=== PATIENT | female | born 1985 | race Two or more races ===

== ENCOUNTER 2016-10-12 22:31 | Inpatient (IN) | payer OTHER ==
[~2016-10-12] VITALS: Ht 157.5 cm; Wt 67.1 kg
--- NOTE | 2016-10-12 22:39 | NUR ---
PATIENT WALKED INTO ER C/O RIB CAGE PAIN RADIATING TO RIGHT UPPER CHEST X1 MONTH BUT HAS WORSENING PAIN WITHIN LAST 30MINS... PT IS ALERT, ORIENTED X 4, NO RESP DISTRESS NOTED OR REPORTED UPON ASSESSMENT... MD AT BEDSIDE...
[2016-10-12] MEDS ORDERED: FLUO-120 PO (22:50)
[2016-10-12] MEDS ORDERED: SPIR50TA3 PO (22:50)
[2016-10-12] MEDS ORDERED: KETOROLAC TROMETHAMINE 30 MG INJ IVP ONE (23:00)
[2016-10-12] MEDS ORDERED: KETOROLAC TROMETHAMINE 30 MG INJ ONE (23:04)
[2016-10-12] MEDS ORDERED: MORPHINE SULFATE 2 MG/1 ML DISP.SYRIN IV ONE (23:15)
[2016-10-12] MEDS ORDERED: ONDANSETRON 4 MG/2 ML VIAL IV ONE (23:15)
[2016-10-12 23:16] LABS: BASOPHILS % (AUTO) 0.4 % (0.0-2.0); EOSINOPHILS # (AUTO) 0.1 K/uL (0.0-0.7); EOSINOPHILS % (AUTO) 0.5 % (0.0-7.0); HEMATOCRIT 45.6 % (37-47); HEMOGLOBIN 16.1 G/DL (12.0-16.0); LYMPHOCYTES # (AUTO) 2.1 K/UL (0.8-4.8); LYMPHOCYTES % (AUTO) 18.1 % (20.5-51.5); MEAN CORPUSCULAR HEMOGLOBIN 29.1 UUG (27.0-31.0); MEAN CORPUSCULAR HGB CONC 35 g/dL (32.0-37.0); MEAN CORPUSCULAR VOLUME 82.6 FL (81.0-99.0); MONOCYTES # (AUTO) 0.7 K/UL (0.1-1.30); MONOCYTES % (AUTO) 5.8 % (0.0-11.0); NEUTROPHILS # (AUTO) 8.8 K/UL (1.8-8.9); NEUTROPHILS % (AUTO) 75.2 % (38.5-71.5); PLATELET COUNT (AUTO) 210 K/UL (150-450); RED BLOOD CELL COUNT(AUTO) 5.53 MIL/UL (4.2-5.4); WHITE BLOOD COUNT (AUTO) 11.7 K/UL (4.0-11.2)
[2016-10-12 23:17] LABS: BILIRUBIN,DIRECT 0.1 mg/dL (0.0-0.2); BILIRUBIN,TOTAL 0.3 mg/dL (0.2-1.0); POTASSIUM 3.8 mmol/L (3.5-5.1); TOTAL PROTEIN, SERUM 8.2 g/dL (6.4-8.2)
[2016-10-12] MEDS ORDERED: ONDANSETRON 4 MG/2 ML VIAL ONE (23:24)
[2016-10-12] MEDS ORDERED: MORPHINE SULFATE 2 MG/1 ML DISP.SYRIN ONE (23:24)
[2016-10-12] MEDS ORDERED: MORPHINE SULFATE 4 MG/1 ML DISP.SYRIN IV ONE (23:45)
[2016-10-12] MEDS ORDERED: MORPHINE SULFATE 4 MG/1 ML DISP.SYRIN ONE (23:54)
--- NOTE | 2016-10-12 23:57 | NUR ---
Pt requesting more pain medication, sts no change in pain with previous medication. MD notified, pt medicated. Will monitor for effects of medication.
[2016-10-13] MEDS ORDERED: IV NORMAL SALINE 1000 ML BAG IV ONE
[2016-10-13] MEDS ORDERED: HYDROMORPHONE 1 MG/1 ML DISP.SYRIN IV ONE ×3 (01:15→05:15)
[2016-10-13] MEDS ORDERED: ONDANSETRON 4 MG/2 ML VIAL IV ONE ×2 (01:15→04:00)
[2016-10-13] MEDS ORDERED: ONDANSETRON 4 MG/2 ML VIAL ONE ×2 (01:32→04:06)
[2016-10-13] MEDS ORDERED: HYDROMORPHONE 1 MG/1 ML DISP.SYRIN ONE ×3 (01:32→05:06)
[2016-10-13] MEDS ORDERED: IV NORMAL SALINE 250 ML IV ONE (03:03)
[2016-10-13] MEDS ORDERED: IOHEXOL 350 100 ML INFUS..BTL ONE (03:03)
[2016-10-13] MEDS ORDERED: HYDROMORPHONE 1 MG/1 ML DISP.SYRIN IV PRN (06:15)
[2016-10-13] MEDS ORDERED: MAGNESIUM HYDROXIDE 30 ML LIQUID UDC PO PRN (06:15)
[2016-10-13] MEDS ORDERED: ASPIRIN 81 MG TAB.CHEW PO ONE (06:15)
[2016-10-13] MEDS ORDERED: ONDANSETRON 4 MG/2 ML VIAL IV PRN (06:15)
[2016-10-13] MEDS ORDERED: HYDROCODONE/APAP 5-325MG TABLET PO PRN (06:15)
[2016-10-13] MEDS ORDERED: ACETAMINOPHEN 325 MG TABLET PO PRN (06:15)
--- NOTE | 2016-10-13 06:30 | NUR ---
Pt. admitted to TELE , under care of Dr. Dominguez, Belongs List completed, pt is alert, oriented x 4, no resp distress noted or reported upon transfer assessment... pt transferred via gurney...
--- NOTE | 2016-10-13 06:45 | NUR ---
RECEIVED PATIENT FROM ER VIA WHEELCHAIR. PATIENT ALERT, ORIENTED X 4. DX: PLEURAL CHEST PAIN. BELONGING LIST DONE. ADMISSION PROCESS, ORDERS AND CARE PLAN TO BE INITIATED BY DAY SHIFT RN. WILL ENDORSE TO DAY SHIFT RN. Addendum: 10/13/16 at 0707 by MEGA OLSEN RN PATIENT IS PLACED ON TELE
[2016-10-13 06:50] VITALS: BP 105/63
--- NOTE | 2016-10-13 07:20 | NUR ---
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 SAFETY CHECK, BED IN LOW POSITION, SIDE RAILS UP X2
[2016-10-13] MEDS: FLUOXETINE HCL 20 MG CAPSULE PO SCH (08:28)
[2016-10-13] MEDS: SPIRONOLACTONE 50 MG TABLET PO SCH ×2 (08:28→08:35)
[2016-10-13] MEDS: PANTOPRAZOLE SODIUM 40 MG TABLET.DR PO SCH (08:29)
[2016-10-13 11:26] LABS: THYROID STIMULATING HORMONE 1.282 mIU/mL (0.358-3.740)
[2016-10-13 11:40] VITALS: BP 100/53
--- NOTE | 2016-10-13 12:00 | NUR ---
patient having intermittent severe pain in right ribs. Blood pressure is too low to administer narcotic medications.
[2016-10-13] MEDS ORDERED: DOXY50CA2 PO (12:26)
[2016-10-13] MEDS: MAGNESIUM HYDROXIDE 30 ML LIQUID UDC PO PRN (13:07)
[2016-10-13] MEDS ORDERED: ENOXAPARIN SODIUM 80 MG/0.8 ML DISP.SYRIN SQ SCH (14:00)
[2016-10-13] MEDS: HYDROMORPHONE 1 MG/1 ML DISP.SYRIN IV PRN ×2 (15:16→22:44)
--- NOTE | 2016-10-13 16:00 | NUR ---
patient seen by DR Sanz, and 2d echo ordered.
[2016-10-13 16:22] VITALS: BP 107/62
[2016-10-13] MEDS ORDERED: KETOROLAC TROMETHAMINE 30 MG INJ IVP ONE (16:45)
[2016-10-13] MEDS: KETOROLAC TROMETHAMINE 30 MG INJ IVP PRN (17:21)
--- NOTE | 2016-10-13 19:02 | NUR ---
pain is currently managed and patient is ambulating without pain. Patient will stay overnight for pain management stabilization.
--- NOTE | 2016-10-13 19:33 | NUR ---
RECEIVED PATIENT AWAKE IN BED. A/ OX4. DENIES ANY PAIN OR DISCOMFORT AT THIS TIME. NO RESP. DISTRESS NOTED. VSS. H/L INTACT AND PATENT. CALL LIGHT IN REACH. ALL NEEDS ATTENDED. WILL CONTINUE TO MONITOR.
[2016-10-13 20:00] VITALS: BP 110/55
[2016-10-13] MEDS ORDERED: DOCUSATE SODIUM 100 MG CAPSULE PO SCH (21:00)
[2016-10-14] MEDS: KETOROLAC TROMETHAMINE 30 MG INJ IVP PRN ×2 (00:26→12:37)
[2016-10-14] MEDS ORDERED: ZOLPIDEM 5 MG TABLET PO PRN (01:30)
[2016-10-14] MEDS ORDERED: ZOLPIDEM 5 MG TABLET ONE (01:38)
[2016-10-14 06:00] VITALS: BP 115/60
[2016-10-14] MEDS: PANTOPRAZOLE SODIUM 40 MG TABLET.DR PO SCH (06:20)
--- NOTE | 2016-10-14 06:41 | NUR ---
PATIENT AWAKE IN BED. NO C/O PAIN AT THIS TIME. SLEPT AT INTERVALS. CALL LIGHT IN REACH. ALL NEEDS ATTENDED. WILL CONTINUE TO MONITOR.
--- NOTE | 2016-10-14 07:10 | NUR ---
received patient from hourly shift, safety check, bed in low position, side rails up x2.
[2016-10-14] MEDS: FLUOXETINE HCL 20 MG CAPSULE PO SCH (08:01)
[2016-10-14] MEDS: SPIRONOLACTONE 50 MG TABLET PO SCH ×3 (08:02→09:00)
[2016-10-14] MEDS: HYDROMORPHONE 1 MG/1 ML DISP.SYRIN IV PRN (08:04)
[2016-10-14] MEDS ORDERED: ASPIRIN 81 MG TAB.CHEW PO SCH (09:00)
[2016-10-14] MEDS ORDERED: HYDROMORPHONE HCL 2 MG TABLET PO ONE (09:45)
--- NOTE | 2016-10-14 10:30 | NUR ---
PATIENT WAS STILL EXPERIENCING PAIN. DR SIERRA CONTACTED FOR NEW ORDERS. ORDERS GIVEN.
[2016-10-14] MEDS ORDERED: HYDR2TAB35 PO (11:46)
[2016-10-14] MEDS ORDERED: IBUP-1481 PO (11:46)
[2016-10-14] MEDS ORDERED: ACET325T53 PO (11:46)
[2016-10-14] MEDS: MAGNESIUM HYDROXIDE 30 ML LIQUID UDC PO PRN (11:56)
[2016-10-14 12:10] VITALS: BP 98/58
== END 2016-10-14 13:58 | disposition home or self-care (01) | DRG 203 ==
LOC: ER 22:39 → TELE 10-13 06:07 → MED 10-13 14:59
PROVIDERS: ADMIT Internal Medicine; ATTEND Internal Medicine
DX: M94.0 Chondrocostal junction syndrome [Tietze] (principal); F32.9 Major depressive disorder, single episode, unspecified; D72.829 Elevated white blood cell count, unspecified; M35.9 Systemic involvement of connective tissue, unspecified; Z88.2 Allergy status to sulfonamides; Z82.49 Family history of ischemic heart disease and other diseases of the circulatory system; L70.9 Acne, unspecified; Z79.899 Other long term (current) drug therapy; L29.9 Pruritus, unspecified; M54.9 Dorsalgia, unspecified
CPT/HCPCS: 36415; 70030-TC; 71010; 71275; 84443; 84703; 85025; 85730; 86140; 93005; 93307; J1170; J1885; J2270; J2405; J7050; Q9967

== ENCOUNTER 2017-03-22 23:41 | Emergency (ER) | payer OTHER ==
[~2017-03-22] VITALS: Ht 157.5 cm; Wt 72.6 kg
[~2017-03-22 23:41] MED LIST: ACET325T53 PO; DOXY50CA2 PO; FLUO-120 PO; HYDR2TAB4 PO; IBUP-1953 PO; SPIR50TA3 PO
[2017-03-23] MEDS ORDERED: KETOROLAC TROMETHAMINE 15 MG INJ IV ONE (01:15)
[2017-03-23 01:24] LABS: BASOPHILS % (AUTO) 0.1 % (0.0-2.0); EOSINOPHILS # (AUTO) 0.1 K/uL (0.0-0.7); EOSINOPHILS % (AUTO) 0.4 % (0.0-7.0); HEMATOCRIT 41.3 % (37-47); HEMOGLOBIN 14.4 G/DL (12.0-16.0); LYMPHOCYTES # (AUTO) 1.6 K/UL (0.8-4.8); LYMPHOCYTES % (AUTO) 12.1 % (20.5-51.5); MEAN CORPUSCULAR HEMOGLOBIN 29.1 UUG (27.0-31.0); MEAN CORPUSCULAR HGB CONC 35 g/dL (32.0-37.0); MEAN CORPUSCULAR VOLUME 83.5 FL (81.0-99.0); MONOCYTES # (AUTO) 0.4 K/UL (0.1-1.30); MONOCYTES % (AUTO) 2.7 % (0.0-11.0); NEUTROPHILS # (AUTO) 11.3 K/UL (1.8-8.9); NEUTROPHILS % (AUTO) 84.7 % (38.5-71.5); PLATELET COUNT (AUTO) 194 K/UL (150-450); RED BLOOD CELL COUNT(AUTO) 4.95 MIL/UL (4.2-5.4); WHITE BLOOD COUNT (AUTO) 13.4 K/UL (4.0-11.2)
[2017-03-23] MEDS ORDERED: KETOROLAC TROMETHAMINE 15 MG INJ ONE (01:29)
[2017-03-23 01:39] LABS: POTASSIUM 3.5 mmol/L (3.5-5.1)
[2017-03-23 01:52] LABS: BILIRUBIN,DIRECT 0.1 mg/dL (0.0-0.2); BILIRUBIN,TOTAL 0.3 mg/dL (0.2-1.0); TOTAL PROTEIN, SERUM 7.4 g/dL (6.4-8.2)
[2017-03-23] MEDS ORDERED: SIMETHICONE 80 MG TAB.CHEW PO ONE (02:15)
[2017-03-23] MEDS ORDERED: ONDANSETRON IV *ER 4 MG/2 ML VIAL IV ONE (02:15)
[2017-03-23] MEDS ORDERED: MORPHINE SULFATE 4 MG/1 ML DISP.SYRIN IV ONE (02:15)
[2017-03-23] MEDS ORDERED: SIMETHICONE 80 MG TAB.CHEW ONE ×2 (02:24→02:28)
[2017-03-23] MEDS ORDERED: ONDANSETRON 4 MG/2 ML VIAL ONE (02:46)
[2017-03-23] MEDS ORDERED: MORPHINE SULFATE 10 MG/1 ML DISP.SYRIN ONE (02:47)
--- NOTE | 2017-03-23 02:59 | NUR ---
IV removed. Catheter intact and site benign. Pressure and 4x4 gauze applied to site. No bleeding noted.
[2017-03-23 03:00] LABS: BAND % (MANUAL) 8 % (0-10); LYMPHOCYTES % (MANUAL) 22 % (20-40); METAMYELOCYTES % 1 % (0-1); MONOCYTES % (MANUAL) 3 % (2-10); MYELOCYTES % 1 % (0-0); NEUTROPHILS % (MANUAL) 62 % (42-75)
[2017-03-23] MEDS ORDERED: ACETAMINOPHEN 325 MG TABLET PO ONE (03:00)
[2017-03-23 03:07] VITALS: BP 138/78
--- NOTE | 2017-03-23 03:07 | NUR ---
Patient discharged to home in stable conditon. Written and verbal after care instructions given. Patient verbalizes understanding of instructions.
[2017-03-23] MEDS ORDERED: ACETAMINOPHEN ES 500 MG TABLET ONE (03:08)
== END 2017-03-23 03:10 | disposition home or self-care (01) ==
LOC: ER 23:43
DX: R09.1 Pleurisy (principal); Z88.2 Allergy status to sulfonamides
CPT/HCPCS: 36415; 71010; 80048; 80076; 83880; 84484; 84703; 85025; 85379; 85730; 93005; 96374; 96375; 99285; A4663 ×2; J1885; J2270; J2405; 70030-TC

== ENCOUNTER 2017-05-19 22:14 | Emergency (ER) | payer OTHER ==
[~2017-05-19] VITALS: Ht 157.5 cm; Wt 70.3 kg
--- NOTE | 2017-05-19 22:45 | NUR ---
Pt had cold before the holidays, but it cleared up until yesterday. Pt c/o conjestion, cough, ANDERSON, and dizziness with some SOB. LS = but diminished. Pt denies CP, n/v, no other complaints, no distress noted.
[2017-05-19 23:25] VITALS: BP 118/88
--- NOTE | 2017-05-19 23:25 | NUR ---
Patient discharged to home in stable conditon. Written and verbal after care instructions given. Patient verbalizes understanding of instructions.
== END 2017-05-19 23:26 | disposition home or self-care (01) ==
LOC: ER 22:15
DX: J20.8 Acute bronchitis due to other specified organisms (principal); Z88.2 Allergy status to sulfonamides
CPT/HCPCS: A4663

== ENCOUNTER 2018-01-21 11:38 | Emergency (ER) | payer OTHER ==
[~2018-01-21] VITALS: Ht 157.5 cm; Wt 72.6 kg
[~2018-01-21 11:38] MED LIST changes: -SPIR50TA3 PO; +SPIR50TA5 PO
[2018-01-21] MEDS ORDERED: GABAPENTIN 100 MG CAPSULE PO ONE (12:15)
[2018-01-21] MEDS ORDERED: GABAPENTIN 100 MG CAPSULE ONE (12:21)
--- NOTE | 2018-01-21 12:30 | NUR ---
labs drawn/nuerontin admin, monitor shows nsr, po2 = 99% on roomair.
[2018-01-21 12:32] LABS: BASOPHILS % (AUTO) 0.7 % (0.0-2.0); EOSINOPHILS # (AUTO) 0.3 K/uL (0.0-0.7); EOSINOPHILS % (AUTO) 4.1 % (0.0-7.0); HEMATOCRIT 39.7 % (31.2-41.9); LYMPHOCYTES # (AUTO) 1.7 K/uL (20.0-40.0); LYMPHOCYTES % (AUTO) 27.5 % (20.5-51.5); MEAN CORPUSCULAR HEMOGLOBIN 28.9 uug (24.7-32.8); MEAN CORPUSCULAR HGB CONC 35 g/dL (32.3-35.6); MEAN CORPUSCULAR VOLUME 82.3 fL (75.5-95.3); MONOCYTES # (AUTO) 0.4 K/uL (2.0-10.0); MONOCYTES % (AUTO) 6.1 % (0.0-11.0); NEUTROPHILS # (AUTO) 3.7 K/uL (1.8-8.9); NEUTROPHILS % (AUTO) 61.6 % (38.5-71.5); PLATELET COUNT (AUTO) 262 K/uL (179-408); RED BLOOD CELL COUNT(AUTO) 4.83 MIL/uL (3.63-4.92); WHITE BLOOD COUNT (AUTO) 6.1 K/uL (3.8-11.8)
[2018-01-21 12:54] LABS: CARBON DIOXIDE 26 mmol/L (21-32); CHLORIDE 102 mmol/L (98-107); CREATININE 0.7 mg/dL (0.6-1.3); GLUCOSE 97 mg/dL (74-106); POTASSIUM 3.9 mmol/L (3.5-5.1); UREA NITROGEN, BLOOD 12 mg/dL (7-18)
[2018-01-21 13:00] LABS: ALANINE AMINOTRANSFERASE 19 U/L (14-59); ALKALINE PHOSPHATASE 62 U/L (50-136); ASPARTATE AMINOTRANSFERASE 15 U/L (15-37); BILIRUBIN,DIRECT < 0.1 mg/dL (0.0-0.2); BILIRUBIN,TOTAL 0.2 mg/dL (0.2-1.0); TOTAL PROTEIN, SERUM 7.8 g/dL (6.4-8.2)
[2018-01-21] MEDS ORDERED: ENOXAPARIN SODIUM 80 MG/0.8 ML DISP.SYRIN SQ ONE ×2 (13:30→13:33)
[2018-01-21] MEDS ORDERED: IV NORMAL SALINE 1000 ML BAG IV ONE (13:30)
[2018-01-21] MEDS ORDERED: SWABABLE VALVE TRANSFER SET EA MC ONE (13:32)
[2018-01-21] MEDS ORDERED: IV NORMAL SALINE 250 ML IV ONE (13:32)
[2018-01-21] MEDS ORDERED: NORMAL SALINE FLUSH 10 ML DISP.SYRIN ONE (13:32)
[2018-01-21] MEDS ORDERED: IOHEXOL 350 100 ML INFUS..BTL ONE (13:32)
--- NOTE | 2018-01-21 13:44 | NUR ---
saline lock placed, preqnancy waiver signed.
[2018-01-21] MEDS ORDERED: LORAZEPAM 2 MG/1 ML VIAL ONE (13:48)
[2018-01-21] MEDS ORDERED: LORAZEPAM 2 MG/1 ML VIAL IV ONE (14:00)
--- NOTE | 2018-01-21 15:53 | NUR ---
mse completed, pt d/c'd home, aci/rx x3 given to pt, pt got dressed and ambulated w/o diff/pt father present and to drive.
[2018-01-21 15:56] VITALS: BP 111/88
== END 2018-01-21 15:50 | disposition home or self-care (01) ==
LOC: ER 11:44
DX: M94.0 Chondrocostal junction syndrome [Tietze] (principal); Z88.2 Allergy status to sulfonamides
CPT/HCPCS: 36415; 70030-TC; 71045; 71275; 85025; 85730; 93005; A4663; J1650; J2060; J3490; J7030; J7050; Q9967

== ENCOUNTER 2018-07-04 16:28 | Emergency (ER) | payer OTHER ==
[~2018-07-04] VITALS: Ht 157.5 cm; Wt 71.7 kg
[2018-07-04] MEDS ORDERED: methylPREDNISolone SOD SUCC 125 MG/2 ML VIAL IM ONE (16:45)
[2018-07-04] MEDS ORDERED: methylPREDNISolone SOD SUCC 40 MG/ML VIAL ONE (17:08)
--- NOTE | 2018-07-04 18:00 | NUR ---
Mirella arguelles in ED - 07/04/18 at 1818 by LUPIS Patient discharged to home in stable conditon. Written and verbal after care instructions given. Patient verbalizes understanding of instructions.PT ACCOMPANIED BY DAUGHTER
--- NOTE | 2018-07-04 18:18 | NUR ---
Patient discharged to home in stable conditon. Written and verbal after care instructions given. Patient verbalizes understanding of instructions.PT WALKS IN STEADY GAIT,
== END 2018-07-04 18:00 | disposition home or self-care (01) ==
LOC: ER 16:28
DX: M94.0 Chondrocostal junction syndrome [Tietze] (principal); M72.2 Plantar fascial fibromatosis; Z88.2 Allergy status to sulfonamides; Z79.1 Long term (current) use of non-steroidal anti-inflammatories (NSAID); Z79.891 Long term (current) use of opiate analgesic; Z79.899 Other long term (current) drug therapy
CPT/HCPCS: 96372; 99283; J2920; A4663

== ENCOUNTER 2018-07-26 23:30 | Emergency (ER) | payer OTHER ==
[~2018-07-26] VITALS: Ht 157.5 cm; Wt 71.7 kg
--- NOTE | 2018-07-26 23:37 | NUR ---
Pt ambulates to ER with c/o severe menstrual cramps that started this am. no n/v/d. pt denies . pt states her menstrual cycle started yesterdam am & the severe pain started this am. no cp/sob.
[2018-07-26] MEDS ORDERED: KETOROLAC TROMETHAMINE 30 MG INJ ONE (23:48)
--- NOTE | 2018-07-26 23:48 | NUR ---
Pt requesting medicine for gas/bloating. notified.
[2018-07-26] MEDS: KETOROLAC TROMETHAMINE 30 MG INJ IVP ONE (23:49)
[2018-07-26] MEDS ORDERED: MAG HYDROX/AL HYDROX/SIMETH 30 ML LIQUID UDC ONE ×2 (23:53→23:54)
[2018-07-26] MEDS: MAG HYDROX/AL HYDROX/SIMETH 30 ML LIQUID UDC PO ONE (23:54)
[2018-07-26] MEDS: DICYCLOMINE HCL LIQ 10 MG/5 ML UDC PO ONE (23:54)
[2018-07-26] MEDS ORDERED: DICYCLOMINE HCL LIQ 10 MG/5 ML UDC ONE (23:54)
--- NOTE | 2018-07-27 00:07 | NUR ---
IV removed. Catheter intact and site benign. Pressure and 4x4 gauze applied to site. No bleeding noted.
--- NOTE | 2018-07-27 00:08 | NUR ---
Patient discharged to home in stable conditon. Written and verbal after care instructions given. Patient verbalizes understanding of instructions. Pt waiting for her dad to pick her up. Pt states she feels better. Pt appears in no apparent distress. All belongings w pt. VSS.
[2018-07-27 00:10] VITALS: BP 122/66
== END 2018-07-27 00:33 | disposition home or self-care (01) ==
LOC: ER 23:32
DX: N94.6 Dysmenorrhea, unspecified (principal); Z88.2 Allergy status to sulfonamides; Z79.1 Long term (current) use of non-steroidal anti-inflammatories (NSAID); Z79.891 Long term (current) use of opiate analgesic; Z79.2 Long term (current) use of antibiotics; Z79.899 Other long term (current) drug therapy
CPT/HCPCS: 96374; 99283; J1885; A4663

== ENCOUNTER 2018-11-11 20:06 | Emergency (ER) | payer OTHER ==
[~2018-11-11] VITALS: Ht 157.5 cm; Wt 72.6 kg
[2018-11-11] MEDS ORDERED: MINOCYCLINE 50 MG CAPSULE (20:23)
[2018-11-11] MEDS ORDERED: OMEP20TA5 PO (20:25)
[2018-11-11] MEDS ORDERED: ONDANSETRON IV *ER 4 MG/2 ML VIAL IV ONE (21:00)
[2018-11-11] MEDS ORDERED: IV NORMAL SALINE 1000 ML BAG IV ONE (21:00)
[2018-11-11] MEDS ORDERED: KETOROLAC TROMETHAMINE 30 MG INJ IVP ONE ×2 (21:00→23:00)
[2018-11-11] MEDS ORDERED: KETOROLAC TROMETHAMINE 60 MG INJ IM ONE ×2 (21:15→22:57)
[2018-11-11] MEDS ORDERED: ONDANSETRON 4 MG/2 ML VIAL ONE (21:15)
[2018-11-11] MEDS: CEFTRIAXONE 2 G in IV DEXTROSE 5% 100 ML IV ONE ×2 (21:16→21:51)
[2018-11-11] MEDS ORDERED: CEFTRIAXONE 1 G VIAL ONE (21:46)
--- NOTE | 2018-11-11 23:01 | NUR ---
DR VILLALTA MADE PATIENT AWARE OF TEST RESULTS WILL DC HOME.
--- NOTE | 2018-11-11 23:01 | NUR ---
Patient discharged to home in stable conditon. Written and verbal after care instructions given. Patient verbalizes understanding of instructions.
[2018-11-11 23:09] VITALS: BP 105/70
== END 2018-11-11 23:10 | disposition home or self-care (01) ==
LOC: ER 20:08
DX: J02.9 Acute pharyngitis, unspecified (principal); R51 Headache; R11.0 Nausea; Z88.2 Allergy status to sulfonamides; Z79.899 Other long term (current) drug therapy; Z79.2 Long term (current) use of antibiotics
CPT/HCPCS: 36415; 86403; 87070; 87400; 96365; 96375; 96376; 99283; J0696; J1885 ×2; J2405; J7060; A4663; J7030